=== PATIENT | male | born 1955 | race Caucasian/White ===

== ENCOUNTER 2023-11-23 00:06 | Emergency (ER) | payer OTHER ==
[~2023-11-23] VITALS: Ht 182.9 cm; Wt 106.6 kg
[~2023-11-23 00:06] MED LIST: ASPI325EC PO; MULVITMIND PO
[2023-11-23] MEDS ORDERED: Ketorolac Tromethamine 15mg Vial IV ONE (00:35)
[2023-11-23] MEDS ORDERED: Diazepam 5 MG / ML 2ML SYR IV ONE (00:35)
[2023-11-23 01:16] LABS: BASOPHILS ABSOLUTE AUTO 0.05 K/mm3 (0.00-0.23); BASOPHILS PERCENT AUTO 1 % (0-2); EOSINOPHILS ABSOLUTE AUTO 0.01 K/mm3 (0.00-0.68); EOSINOPHILS PERCENT AUTO 0 % (0-6); Hematocrit 49.8 % (37.0-53.0); Hemoglobin 17.4 g/dL (13.5-17.5); IMMATURE GRAN ABSOLUTE AUTO 0.02 K/mm3 (0.00-0.10); IMMATURE GRAN PERCENT AUTO 0 % (0-1); LYMPHOCYTES ABSOLUTE AUTO 2.24 K/mm3 (0.84-5.20); LYMPHOCYTES PERCENT AUTO 24 % (21-46); MONOCYTES ABSOLUTE AUTO 0.56 K/mm3 (0.16-1.47); MONOCYTES PERCENT AUTO 6 % (4-13); Mean Corpuscular HGB 31.5 pg (26.0-34.0); Mean Corpuscular HGB Conc 34.9 g/dL (31.5-36.5); Mean Corpuscular Volume 90 fL (80-100); NEUTROPHILS ABSOLUTE AUTO 6.58 K/mm3 (1.96-9.15); NEUTROPHILS PERCENT AUTO 70 % (41-73); Platelet Count 254 K/mm3 (150-400); RDW Coefficient Variation 14.6 % (11.7-14.2); RDW Standard Deviation 48.2 fL (35.1-46.3); Red Blood Cell Count 5.52 M/mm3 (4.30-5.90); White Blood Cell Count 9.46 K/mm3 (4.00-11.30)
[2023-11-23 01:41] LABS: Albumin, Blood 3.1 g/dL (3.4-5.0); Albumin/Globulin Ratio 0.7 (0.8-1.8); Bun/Creatinine Ratio 17.5 (12.0-20.0); Calcium, Blood 9.2 mg/dL (8.5-10.1); Creatinine, Blood 0.8 mg/dL (0.60-1.20); Globulin, Blood 4.2 g/dL (2.2-4.0); Potassium, Blood 4.6 mmol/L (3.5-5.5); Total Protein, Blood 7.3 g/dL (6.4-8.2)
[2023-11-23] MEDS ORDERED: Morphine Sulfate 4 MG/1 ML Injection IV ONE ×2 (01:55)
[2023-11-23] MEDS ORDERED: Esmolol HCL 2500mg/250ml Prema 250 ML IV SCH (02:10)
[2023-11-23 02:30] VITALS: BP 152/101
== END 2023-11-23 02:50 | disposition short-term general hospital (02) ==
LOC: ER 00:06
PROVIDERS: Emergency Medicine
DX: I71.33 Infrarenal abdominal aortic aneurysm, ruptured (principal); K68.3 Retroperitoneal hematoma
CPT/HCPCS: 72131; 74174; 80053; 83605; 83690; 83880; 84484; 85025; 86850; 86900; 86901; 86920; 93005; 93010; 96374; 96375; 99285-25; J1885; J2270; J3360; Q9967

== ENCOUNTER 2025-08-15 22:28 | Emergency (ER) | payer OTHER ==
[~2025-08-15] VITALS: Ht 182.9 cm; Wt 102.1 kg
[2025-08-15 23:03] LABS: BASOPHILS ABSOLUTE AUTO 0.09 K/mm3 (0.00-0.23); BASOPHILS PERCENT AUTO 1 % (0-2); EOSINOPHILS ABSOLUTE AUTO 0.09 K/mm3 (0.00-0.68); EOSINOPHILS PERCENT AUTO 1 % (0-6); Hematocrit 46.0 % (37.0-53.0); Hemoglobin 16.3 g/dL (13.5-17.5); IMMATURE GRAN ABSOLUTE AUTO 0.03 K/mm3 (0.00-0.10); IMMATURE GRAN PERCENT AUTO 0 % (0-1); LYMPHOCYTES ABSOLUTE AUTO 2.90 K/mm3 (0.84-5.20); LYMPHOCYTES PERCENT AUTO 28 % (21-46); MONOCYTES ABSOLUTE AUTO 1.06 K/mm3 (0.16-1.47); MONOCYTES PERCENT AUTO 10 % (4-13); Mean Corpuscular HGB Conc 35.4 g/dL (31.5-36.5); Mean Corpuscular Volume 91 fL (80-100); NEUTROPHILS ABSOLUTE AUTO 6.22 K/mm3 (1.96-9.15); NEUTROPHILS PERCENT AUTO 60 % (41-73); NRBC ABSOLUTE 0.00 K/mm3 (0.00-0.02); NRBC Auto 0.0 /100 WBC (0.0-0.2); Platelet Count 221 K/mm3 (150-400); RDW Coefficient Variation 14.3 % (11.7-14.2); RDW Standard Deviation 47.8 fL (35.1-46.3)
[2025-08-15 23:21] LABS: Alanine Aminotransfer (ALT/SGP 27.0 U/L (12-78); Albumin, Blood 2.9 g/dL (3.4-5.0); Albumin/Globulin Ratio 0.7 (0.8-1.8); Anion Gap 9.0 mmol/L (3-11); Aspartate Aminotrans (AST/SGOT 40.0 U/L (12-37); Bilirubin, Total 1.4 mg/dL (0.1-1.0); Blood Urea Nitrogen 21.0 mg/dL (8-24); CO2, Blood 24.0 mmol/L (21-32); Calcium, Blood 8.6 mg/dL (8.5-10.1); Chloride, Blood 94.0 mmol/L (98-108); Creatinine, Blood 0.88 mg/dL (0.60-1.20); Globulin, Blood 4.0 g/dL (2.2-4.0); Glucose, Blood 105.0 mg/dL (70-99); Potassium, Blood 4.6 mmol/L (3.5-5.5); Sodium, Blood 122.0 mmol/L (136-145); Total Protein, Blood 6.9 g/dL (6.4-8.2)
[2025-08-15] MEDS ORDERED: Dexamethasone Sod Phos 10 MG/ML 1ML VIAL IV ONE (23:55)
[2025-08-16 00:35] LABS: Osmolality, Serum 264.0 mos/KG (275-300)
[2025-08-16] MEDS ORDERED: NS 500 ML IV SCH (02:00)
[2025-08-16 02:50] VITALS: BP 118/73
[2025-08-16 02:53] LABS: Source, Urine Clean Catch
[2025-08-16 03:22] LABS: Bilirubin, Urine Neg (Neg); Color, Urine Yellow (P-Yellow); Glucose Qualitative, Urine Neg (Neg); Ketones, Urine Neg (Neg); Leukocyte Esterase, Urine 3+ (Neg); Protein, Urine 1+ (Neg); Red Blood Cells, Urine 0-2 /hpf (0-2); Specific Gravity, Urine 1.015 (1.003-1.022); Urobilinogen, Urine NORM (Normal); White Blood Cells, Urine TNTC /hpf (0-5)
[2025-08-16 03:25] LABS: Osmolality, Urine 563 mos/kg (15-1400)
[2025-08-16 03:26] LABS: Sodium, Urine, Random 65 mmol/L (20-110)
== END 2025-08-16 03:39 | disposition home or self-care (01) ==
LOC: ER 22:28
PROVIDERS: Emergency Medicine; Student in an Organized Health Care Education/Training Program
DX: G93.89 Other specified disorders of brain (principal); R60.0 Localized edema; E87.1 Hypo-osmolality and hyponatremia; R53.1 Weakness
CPT/HCPCS: 70450; 70460; 71046; 80053; 81001; 83880; 83930; 83935; 84300; 84484; 85025; 87077; 87086; 87186; 93005; 93010; 96361-59; 96374-59; 99285-25; J1100; J7030; Q9967

== ENCOUNTER 2025-09-25 01:04 | Day surgery (SDC) | payer MEDICARE ==
[2025-09-25] MEDS ORDERED: CefTRIAXone Sodium 2,000 MG in NS 100 ML IV SCH (06:00)
[2025-09-25 08:47] VITALS: BP 91/62
[2025-09-25] MEDS ORDERED: LACT PO (11:20)
[2025-09-25] MEDS ORDERED: POTA10T PO (11:21)
[2025-09-25] MEDS ORDERED: SENN187 PO (11:21)
[2025-09-25] MEDS ORDERED: ELIQUIS5 M2 PO (11:22)
[2025-09-25] MEDS ORDERED: ALBU90OI INH (11:22)
[2025-09-25] MEDS ORDERED: MIRALAX17 GM PO (11:23)
[2025-09-25] MEDS ORDERED: ACET325 PO (11:23)
[2025-09-25] MEDS ORDERED: METO25ER PO (11:23)
[2025-09-25] MEDS ORDERED: ATOR20 PO (11:24)
[2025-09-25] MEDS ORDERED: TIOT18 INH (11:24)
[2025-09-25] MEDS ORDERED: TAMS.4ER PO (11:24)
[2025-09-25] MEDS ORDERED: FURO40 PO (11:25)
== END 2025-09-25 16:32 | disposition home or self-care (01) ==
LOC: ATC 01:04
DX: G06.0 Intracranial abscess and granuloma (principal); J44.9 Chronic obstructive pulmonary disease, unspecified; F17.200 Nicotine dependence, unspecified, uncomplicated; I10 Essential (primary) hypertension; E11.42 Type 2 diabetes mellitus with diabetic polyneuropathy; Z79.899 Other long term (current) drug therapy
CPT/HCPCS: 96365; J0696

== ENCOUNTER 2025-09-26 01:00 | Day surgery (SDC) | payer MEDICARE ==
[~2025-09-26 01:00] MED LIST changes: +ACET325 PO; +ALBU90OI INH; +ATOR20 PO; +ELIQUIS5 M2 PO; +FURO40 PO; +LACT PO; +METO25ER PO; +MIRALAX17 GM PO; +POTA10T PO; +SENN187 PO; +TAMS.4ER PO; +TIOT18 INH
[2025-09-26] MEDS ORDERED: CefTRIAXone Sodium 2,000 MG in NS 100 ML IV SCH (06:00)
[2025-09-26 08:35] VITALS: BP 92/66
--- NOTE | 2025-09-26 08:49 | NUR ---
PT ARRIVED WITH PORTABLE OXYGEN AND A HOSPITAL OXYGEN TANK IN A WHEELED CART. PT REPORTS THAT [facility] LET THE PT TAKE THE OXYGEN TANK AND WHEELED CART HOME WITH HIM YESTERDAY HE WAS CONCERNED HE WOULD NOT HAVE ENOUGH OXYGEN AT HOME. PT IS CURRENTLY ON 4LITERS O2 AROUND THE CLOCK. OXYGEN TANK DID RETURN TODAY ON EMPTY. CALLED [employer], NURSING [employer] TO ASK FOR ASSISTANCE ON HOW TO HELP THE PT THROUGH THE WEEKEND. [employer] REPORTED THAT THE PT NEEDS TO CALL HE OXYGEN SUP[employer] AND THEY HAVE SOMEONE FANCY NEEDLEWORKER TO ASSIST WITH OXYGEN NEEDS. PT INFORMED AND VERBALIZED UNDERSTANDING.
--- NOTE | 2025-09-26 15:53 | NUR ---
PT HAS NOT ARRIVED FOR 1530 APPT. CALLED TO CHECK ON PT AND CALL WENT STRAIGHT TO [employer]
== END 2025-09-26 23:00 | disposition home or self-care (01) ==
LOC: ATC 01:00
DX: G06.0 Intracranial abscess and granuloma (principal); E78.5 Hyperlipidemia, unspecified; E11.42 Type 2 diabetes mellitus with diabetic polyneuropathy; J96.10 Chronic respiratory failure, unspecified whether with hypoxia or hypercapnia; I50.32 Chronic diastolic (congestive) heart failure; I11.0 Hypertensive heart disease with heart failure; G81.94 Hemiplegia, unspecified affecting left nondominant side; I48.0 Paroxysmal atrial fibrillation; Z79.899 Other long term (current) drug therapy
CPT/HCPCS: 96365; J0696

== ENCOUNTER 2025-09-29 02:36 | Day surgery (SDC) | payer MEDICARE ==
[~2025-09-29 02:36] MED LIST changes: +CefTRIAXone Sodium 2,000 MG in NS 100 ML IV SCH
[2025-09-29 08:45] VITALS: BP 102/77
--- NOTE | 2025-09-29 16:41 | NUR ---
CALLED [facility] TO COMMUNICATE CONCERNS ABOUT PT'S OXYGENATION. BOTH VISITS TODAY HAVE BEEN CONCERNING FOR DYSPNEA WITH SATS BETWEEN 72-74% UPON ARRIVAL. PT STATES THAT HE IS CONCERNED ABOUT NOT HAVING SUFFICIENT SUPPLY OF OXYGEN AT HOME. HE BELIEVES THAT HE HAS ENOUGH FOR TONIGHT. ADVISED [facility] PRESENT TO THE [facility]RGENT CARE OR ER NEEDED. TAY VICKERS AT HIS PCP WITH SEE HIM TOMORROW AND FACILITATE THE OXYGEN ORDERS NEEDED. PT STATES UNDERSTANDING AND AGREEABLE TO PLAN.
== END 2025-09-29 16:35 | disposition home or self-care (01) ==
LOC: ATC 02:36
DX: G06.0 Intracranial abscess and granuloma (principal); I11.0 Hypertensive heart disease with heart failure; I50.32 Chronic diastolic (congestive) heart failure; I48.0 Paroxysmal atrial fibrillation; I27.20 Pulmonary hypertension, unspecified; J44.9 Chronic obstructive pulmonary disease, unspecified; J84.10 Pulmonary fibrosis, unspecified; J96.11 Chronic respiratory failure with hypoxia; E11.42 Type 2 diabetes mellitus with diabetic polyneuropathy; E78.5 Hyperlipidemia, unspecified; F17.200 Nicotine dependence, unspecified, uncomplicated; G47.33 Obstructive sleep apnea (adult) (pediatric); G93.89 Other specified disorders of brain; G81.94 Hemiplegia, unspecified affecting left nondominant side; Z79.899 Other long term (current) drug therapy; Z79.01 Long term (current) use of anticoagulants
CPT/HCPCS: 96365; J0696

== ENCOUNTER 2025-09-30 00:40 | Day surgery (SDC) | payer MEDICARE ==
[~2025-09-30 00:40] MED LIST changes: -CefTRIAXone Sodium 2,000 MG in NS 100 ML IV SCH
[2025-09-30] MEDS ORDERED: CefTRIAXone Sodium 2,000 MG in NS 100 ML IV SCH (06:00)
[2025-09-30 08:32] VITALS: BP 103/66
[2025-09-30 15:25] VITALS: BP 141/95
== END 2025-09-30 15:57 | disposition home or self-care (01) ==
LOC: ATC 00:40
DX: G06.0 Intracranial abscess and granuloma (principal); I11.0 Hypertensive heart disease with heart failure; I50.32 Chronic diastolic (congestive) heart failure; I27.20 Pulmonary hypertension, unspecified; I48.0 Paroxysmal atrial fibrillation; J44.9 Chronic obstructive pulmonary disease, unspecified; J84.10 Pulmonary fibrosis, unspecified; J96.11 Chronic respiratory failure with hypoxia; R91.8 Other nonspecific abnormal finding of lung field; R59.0 Localized enlarged lymph nodes; G81.94 Hemiplegia, unspecified affecting left nondominant side; G47.33 Obstructive sleep apnea (adult) (pediatric); G93.89 Other specified disorders of brain; E78.5 Hyperlipidemia, unspecified; E11.42 Type 2 diabetes mellitus with diabetic polyneuropathy; F41.1 Generalized anxiety disorder; M62.81 Muscle weakness (generalized); N40.0 Benign prostatic hyperplasia without lower urinary tract symptoms; Z79.01 Long term (current) use of anticoagulants; Z79.899 Other long term (current) drug therapy; Z98.890 Other specified postprocedural states
CPT/HCPCS: 96365; J0696

== ENCOUNTER 2025-10-01 02:27 | Day surgery (SDC) | payer MEDICARE ==
[2025-10-01] MEDS ORDERED: CefTRIAXone Sodium 2,000 MG in NS 100 ML IV SCH (06:00)
[2025-10-01 08:35] VITALS: BP 98/68
[2025-10-01 15:43] VITALS: BP 96/76
== END 2025-10-01 16:08 | disposition home or self-care (01) ==
LOC: ATC 02:27
DX: G06.0 Intracranial abscess and granuloma (principal); I50.32 Chronic diastolic (congestive) heart failure; I11.0 Hypertensive heart disease with heart failure; J44.9 Chronic obstructive pulmonary disease, unspecified; E78.5 Hyperlipidemia, unspecified; E11.42 Type 2 diabetes mellitus with diabetic polyneuropathy; I48.0 Paroxysmal atrial fibrillation; G81.94 Hemiplegia, unspecified affecting left nondominant side
CPT/HCPCS: 96365; J0696

== ENCOUNTER 2025-10-02 03:24 | Day surgery (SDC) | payer MEDICARE ==
[2025-10-02] MEDS ORDERED: CefTRIAXone Sodium 2,000 MG in NS 100 ML IV SCH (06:00)
[2025-10-02 08:38] VITALS: BP 104/69
[2025-10-02 15:45] VITALS: BP 84/54
[2025-10-02 16:05] VITALS: BP 85/50
== END 2025-10-02 16:09 | disposition home or self-care (01) ==
LOC: ATC 03:24
DX: G06.0 Intracranial abscess and granuloma (principal); J44.9 Chronic obstructive pulmonary disease, unspecified; J96.21 Acute and chronic respiratory failure with hypoxia; J84.10 Pulmonary fibrosis, unspecified; E78.5 Hyperlipidemia, unspecified; G47.33 Obstructive sleep apnea (adult) (pediatric); I11.0 Hypertensive heart disease with heart failure; I50.32 Chronic diastolic (congestive) heart failure; I48.0 Paroxysmal atrial fibrillation; E11.42 Type 2 diabetes mellitus with diabetic polyneuropathy; G81.94 Hemiplegia, unspecified affecting left nondominant side; E44.1 Mild protein-calorie malnutrition; F17.200 Nicotine dependence, unspecified, uncomplicated; Z79.899 Other long term (current) drug therapy
CPT/HCPCS: 96365; 99211; J0696

== ENCOUNTER 2025-10-03 02:22 | Day surgery (SDC) | payer MEDICARE ==
[~2025-10-03 02:22] MED LIST changes: +CefTRIAXone Sodium 2,000 MG in NS 100 ML IV SCH
[2025-10-03 08:48] VITALS: BP 97/67
[2025-10-03] MEDS ORDERED: CefTRIAXone Sodium 2,000 MG in NS 100 ML IV SCH (15:00)
== END 2025-10-03 16:46 | disposition home or self-care (01) ==
LOC: ATC 02:22
DX: G06.0 Intracranial abscess and granuloma (principal); J44.9 Chronic obstructive pulmonary disease, unspecified; J96.21 Acute and chronic respiratory failure with hypoxia; J84.10 Pulmonary fibrosis, unspecified; I11.0 Hypertensive heart disease with heart failure; I50.32 Chronic diastolic (congestive) heart failure; I48.0 Paroxysmal atrial fibrillation; I27.20 Pulmonary hypertension, unspecified; F17.200 Nicotine dependence, unspecified, uncomplicated; F41.1 Generalized anxiety disorder; R91.8 Other nonspecific abnormal finding of lung field; R59.0 Localized enlarged lymph nodes; E11.42 Type 2 diabetes mellitus with diabetic polyneuropathy; E78.5 Hyperlipidemia, unspecified; G81.94 Hemiplegia, unspecified affecting left nondominant side; G47.33 Obstructive sleep apnea (adult) (pediatric); G93.89 Other specified disorders of brain; N40.0 Benign prostatic hyperplasia without lower urinary tract symptoms; Z79.01 Long term (current) use of anticoagulants; Z79.899 Other long term (current) drug therapy; Z99.81 Dependence on supplemental oxygen
CPT/HCPCS: 96365; J0696

== ENCOUNTER → 2025-10-05 | Outpatient (CLI) | payer MEDICARE ==
[~2025-10-05] MED LIST changes: -CefTRIAXone Sodium 2,000 MG in NS 100 ML IV SCH
[2025-10-05 19:04] LABS: BASOPHILS ABSOLUTE AUTO 0.08 K/mm3 (0.00-0.23); BASOPHILS PERCENT AUTO 1 % (0-2); EOSINOPHILS ABSOLUTE AUTO 0.43 K/mm3 (0.00-0.68); EOSINOPHILS PERCENT AUTO 6 % (0-6); Hematocrit 41.6 % (37.0-53.0); Hemoglobin 13.6 g/dL (13.5-17.5); IMMATURE GRAN ABSOLUTE AUTO 0.01 K/mm3 (0.00-0.10); IMMATURE GRAN PERCENT AUTO 0 % (0-1); LYMPHOCYTES ABSOLUTE AUTO 2.58 K/mm3 (0.84-5.20); LYMPHOCYTES PERCENT AUTO 36 % (21-46); MONOCYTES ABSOLUTE AUTO 0.80 K/mm3 (0.16-1.47); MONOCYTES PERCENT AUTO 11 % (4-13); Mean Corpuscular HGB Conc 32.7 g/dL (31.5-36.5); Mean Corpuscular Volume 99 fL (80-100); NEUTROPHILS ABSOLUTE AUTO 3.18 K/mm3 (1.96-9.15); NEUTROPHILS PERCENT AUTO 45 % (41-73); NRBC ABSOLUTE 0.00 K/mm3 (0.00-0.02); NRBC Auto 0.0 /100 WBC (0.0-0.2); Platelet Count 222 K/mm3 (150-400); RDW Coefficient Variation 16.1 % (11.7-14.2); RDW Standard Deviation 59.3 fL (35.1-46.3)
[2025-10-05 19:47] LABS: Alanine Aminotransfer (ALT/SGP 26.0 U/L (12-78); Albumin, Blood 3.1 g/dL (3.4-5.0); Albumin/Globulin Ratio 0.9 (0.8-1.8); Anion Gap 7.0 mmol/L (3-11); Aspartate Aminotrans (AST/SGOT 38.0 U/L (12-37); Bilirubin, Total 0.9 mg/dL (0.1-1.0); Blood Urea Nitrogen 14.0 mg/dL (8-24); CO2, Blood 28.0 mmol/L (21-32); Calcium, Blood 9.1 mg/dL (8.5-10.1); Chloride, Blood 101.0 mmol/L (98-108); Creatinine, Blood 0.84 mg/dL (0.60-1.20); Globulin, Blood 3.4 g/dL (2.2-4.0); Glucose, Blood 89.0 mg/dL (70-99); Potassium, Blood 4.6 mmol/L (3.5-5.5); Sodium, Blood 131.0 mmol/L (136-145); Total Protein, Blood 6.5 g/dL (6.4-8.2); Uric Acid, Blood 6.2 mg/dL (3.5-7.2)
== END ==
LOC: LAB 15:51 → LAB SHORT 15:51
PROVIDERS: Internal Medicine Hematology & Oncology
DX: C80.1 Malignant (primary) neoplasm, unspecified (principal); C34.12 Malignant neoplasm of upper lobe, left bronchus or lung
CPT/HCPCS: 80053; 82378; 84550; 85025

== ENCOUNTER 2025-10-22 23:57 | Inpatient (IN) | payer OTHER ==
[~2025-10-22] VITALS: Ht 182.9 cm; Wt 95.6 kg
[2025-10-23 00:09] LABS: pH Blood Venous 7.34 (7.34-7.37)
[2025-10-23] MEDS ORDERED: Metoprolol Tartrate 1 MG/ML 5 ML VIAL IV PRN (00:10)
[2025-10-23 00:11] LABS: Hematocrit 37.3 % (37.0-53.0); Hemoglobin 12.2 g/dL (13.5-17.5); Mean Corpuscular HGB Conc 32.7 g/dL (31.5-36.5); Mean Corpuscular Volume 99 fL (80-100); NRBC ABSOLUTE 0.03 K/mm3 (0.00-0.02); NRBC Auto 0.4 /100 WBC (0.0-0.2); Platelet Count 84 K/mm3 (150-400); RDW Coefficient Variation 15.4 % (11.7-14.2); RDW Standard Deviation 55.3 fL (35.1-46.3)
[2025-10-23 00:30] LABS: BAND PERCENT MAN 4 % (0-8); BASOPHILS ABSOLUTE MAN 0.07 K/mm3 (0.00-0.23); BASOPHILS PERCENT MAN 1 % (0-2); EOSINOPHILS ABSOLUTE MAN 0.00 K/mm3 (0.00-0.68); EOSINOPHILS PERCENT MAN 0 % (0-6); LYMPHOCYTES ABSOLUTE MAN 0.91 K/mm3 (0.84-5.20); LYMPHOCYTES PERCENT MAN 13 % (21-46); MONOCYTES ABSOLUTE MAN 0.84 K/mm3 (0.16-1.47); MONOCYTES PERCENT MAN 12 % (4-13); MYELOCYTE ABSOLUTE MAN 0.35 K/mm3 (0.00-0.00); MYELOCYTE PERCENT MAN 5 % (0-0); NEUTROPHILS ABSOLUTE MAN 4.83 K/mm3 (1.96-9.15); SEG NEUTROPHILS PERCENT MAN 65 % (41-73)
[2025-10-23] MEDS ORDERED: Amiodarone HCl 150 MG in NS 100 ML IV ONE (00:45)
[2025-10-23 01:09] LABS: Alanine Aminotransfer (ALT/SGP 122.0 U/L (12-78); Albumin, Blood 3.1 g/dL (3.4-5.0); Albumin/Globulin Ratio 1.0 (0.8-1.8); Anion Gap 18.0 mmol/L (3-11); Aspartate Aminotrans (AST/SGOT 204.0 U/L (12-37); Bilirubin, Total 1.8 mg/dL (0.1-1.0); Blood Urea Nitrogen 43.0 mg/dL (8-24); CO2, Blood 22.0 mmol/L (21-32); Calcium, Blood 8.5 mg/dL (8.5-10.1); Chloride, Blood 103.0 mmol/L (98-108); Creatinine, Blood 1.39 mg/dL (0.60-1.20); Globulin, Blood 3.2 g/dL (2.2-4.0); Glucose, Blood 23.0 mg/dL (70-99); Potassium, Blood 4.9 mmol/L (3.5-5.5); Sodium, Blood 138.0 mmol/L (136-145); Total Protein, Blood 6.3 g/dL (6.4-8.2)
[2025-10-23] MEDS ORDERED: NS 1,000 ML IV SCH ×2 (01:20→16:15)
[2025-10-23] MEDS ORDERED: FLU VACC TS2025(65UP)/MF59C/PF 45 MCG/0.5 ML SYRINGE IM SCH (05:30)
[2025-10-23] MEDS ORDERED: Ondansetron HCl 2 MG / ML 2ML Vial IV PRN (05:30)
[2025-10-23] MEDS ORDERED: Amiodarone HCl 450 MG in NS 250 ML IV SCH (05:40)
[2025-10-23] MEDS ORDERED: Enoxaparin 40 MG/0.4 ML SYR SC SCH (09:00)
[2025-10-23 13:59] VITALS: BP 95/72
[2025-10-23 16:57] VITALS: BP 99/74
--- NOTE | 2025-10-23 16:57 | NUR ---
ARRIVAL TO UNIT PT ARRIVED TO PCU AT 1350 VIA GURNEY AND ON 5L NC WHICH IS PT BASELINE. PT ABLE TO TRANSFER FROM GURNEY TP PCU BED WITH MINIMAL ASSISTANCE, TOLERAFED FAIR. O2 INCREASED TO 7L WITH EXERTION SATS DROPPED TO MID 80'S. SATS REBOUNDED QUICKLY ONCE AT REST AND O2 TITRATED BACK TO 5L NC. PT A/OX4, ANSWERING HX QUESTIONS APPROPIATELY. PT IN AFIB WITH CONTROLED RATE. OTHER VSS AT TIME OF ARRIVAL. BLOOD SUGAR CHECKED AT TIME OF ARRIVAL AND WAS MD ANALISA NOTIFIED. CONTINUE Q4 CBG'S AT THIS TIME.
--- NOTE | 2025-10-23 18:17 | NUR ---
END OF SHIFT SUMMARY PT IS A/O X4, ABLE TO MAKE NEEDS KNOWN AND CAN MOVE EXTREMITIES EQUALLY AND BILATERALLY. PT CAN BECOME AGITATED AT TIMES. PT IS AFEBRILE. CONTINUOUS CARDIAC MONITORING IN PLACE SHOWING AFIB WITH A HR IN THE 100'S, MPA >65. PT IS ON 5L-8L NC, NEEDING HIGHER OXYGEN DEMAND WITH MOVEMENT. PT IS CARDIAC DIET AND CAN TOLERATE PO INTAKE WELL. PT CAN USE THE URINAL INDEPENDENTLY AND IS SBA TO THE BSC. PIV IS IN PLACE TO THE R HAND AND LFA. BED IS IN LOWEST POSITION, CALL LIGHT IN REACH, WILL REPORT TO ONCOMING SHIFT.
[2025-10-23 19:02] VITALS: BP 92/66
[2025-10-23 23:19] VITALS: BP 101/74
[2025-10-24] LABS: U Amphetamine Screen Not Detected; U Barbiturate Screen Not Detected; U Benzodiazapine Screen Not Detected; U Buprenorphine Screen Not Detected; U Cannabinoids Screen DETECTED; U Cocaine Screen Not Detected; U Methadone Screen Not Detected; U Methamphetamine Screen Not Detected; U Opiates Screen Not Detected; U Oxycodone Screen Not Detected; U Phencyclidine Screen Not Detected
[2025-10-24 03:41] VITALS: BP 110/77
[2025-10-24 04:05] LABS: BASOPHILS ABSOLUTE AUTO 0.06 K/mm3 (0.00-0.23); BASOPHILS PERCENT AUTO 1 % (0-2); EOSINOPHILS ABSOLUTE AUTO 0.03 K/mm3 (0.00-0.68); EOSINOPHILS PERCENT AUTO 1 % (0-6); Hematocrit 29.6 % (37.0-53.0); Hemoglobin 10.2 g/dL (13.5-17.5); IMMATURE GRAN ABSOLUTE AUTO 0.26 K/mm3 (0.00-0.10); IMMATURE GRAN PERCENT AUTO 4 % (0-1); LYMPHOCYTES ABSOLUTE AUTO 2.10 K/mm3 (0.84-5.20); LYMPHOCYTES PERCENT AUTO 35 % (21-46); MONOCYTES ABSOLUTE AUTO 1.22 K/mm3 (0.16-1.47); MONOCYTES PERCENT AUTO 20 % (4-13); Mean Corpuscular HGB Conc 34.5 g/dL (31.5-36.5); Mean Corpuscular Volume 96 fL (80-100); NEUTROPHILS ABSOLUTE AUTO 2.41 K/mm3 (1.96-9.15); NEUTROPHILS PERCENT AUTO 40 % (41-73); NRBC ABSOLUTE 0.02 K/mm3 (0.00-0.02); NRBC Auto 0.3 /100 WBC (0.0-0.2); Platelet Count 105 K/mm3 (150-400); RDW Coefficient Variation 15.3 % (11.7-14.2); RDW Standard Deviation 53.4 fL (35.1-46.3)
[2025-10-24 04:34] LABS: Alanine Aminotransfer (ALT/SGP 146.0 U/L (12-78); Albumin, Blood 2.4 g/dL (3.4-5.0); Albumin/Globulin Ratio 0.9 (0.8-1.8); Anion Gap 7.0 mmol/L (3-11); Aspartate Aminotrans (AST/SGOT 217.0 U/L (12-37); Bilirubin, Total 0.9 mg/dL (0.1-1.0); Blood Urea Nitrogen 36.0 mg/dL (8-24); CO2, Blood 28.0 mmol/L (21-32); Calcium, Blood 7.6 mg/dL (8.5-10.1); Chloride, Blood 101.0 mmol/L (98-108); Creatinine, Blood 0.96 mg/dL (0.60-1.20); Globulin, Blood 2.8 g/dL (2.2-4.0); Glucose, Blood 79.0 mg/dL (70-99); Potassium, Blood 4.0 mmol/L (3.5-5.5); Sodium, Blood 132.0 mmol/L (136-145); Total Protein, Blood 5.2 g/dL (6.4-8.2)
--- NOTE | 2025-10-24 06:32 | NUR ---
Shift Summary Pt on Q4 blood sugars, CBG stable t/o the night. 0400 CBG was on the low side of normal at 79. I encourage snacks and applejuice. Pt on 5-9L O2 NC, he quickly desats down to 80% when up however if on 9L he may desat down to 84% and recover faster. Once back in bed and resting I set him back to 5L and his SPO2 is stable around 94%. Pt having frequent voids using the urinal at the bedside. He is rcving NS @ 150 as ordered. He is AOx4, calls appropriatly. No agitation this shift. Pt has a congested cough.
[2025-10-24 07:31] VITALS: BP 117/81
[2025-10-24] MEDS ORDERED: Enoxaparin 60 MG/0.6 ML SYR SC ONE (11:20)
[2025-10-24 12:20] VITALS: BP 103/65
[2025-10-24] MEDS ORDERED: STIOLTO RESPIMAT4 G2 INH (12:56)
[2025-10-24] MEDS ORDERED: DAPAGLIFLOZIN5 MG PO (12:58)
[2025-10-24] MEDS ORDERED: MAGNESIUM OXID500 MG PO (12:58)
[2025-10-24] MEDS ORDERED: THERA-D2000 UNIT PO (12:59)
[2025-10-24] MEDS ORDERED: ONDA4ODT PO (13:00)
[2025-10-24 15:11] VITALS: BP 116/90
[2025-10-24] MEDS ORDERED: Furosemide 10 MG / ML 2ML Vial IV ONE (18:35)
--- NOTE | 2025-10-24 18:35 | NUR ---
SPOKE WITH DR. MARTINEZ REGARDING INCREASE IN O2 DEMAND WITH AMBULATION AND COARSE CRACKLES TO BASES OF LUNGS. CXR AND BNP ORDERED PER PROVIDER. RESULTS DISCUSSED WITH PROVIDER AND ORDER FOR IV LASIX 20MG X1 NOW AND RESART PO HOME DOSE TOMMOROW
--- NOTE | 2025-10-24 19:39 | NUR ---
END OF SHIFT SUMMARY PT IS A/O X4 ABLE TO MAKE NEEDS KNOWN AND CAN MOVE EXTREMITIES EQUALLY AND BILATERALLY, PT IS AFEBRILE. CONTINUOUS CARDAIC MONITORING IN PLACE, SHOWING AFIB WITH HR IN THE 80'S-100'S, MAP >65. PT IS ON 5L WHICH IS BASELINE AND NEEDS HIGHER OXYGEN REQUIRMENTS WITH MOVEMENT. PT IS CARDIAC DIET AND TOLERATES PO INTAKE WELL. PT USES URINAL IND. PIV IS IN PLACE TO L HAND. BED IN LOWEST POSITION, CALL LIGHT IN REACH, WILL REPORT TO ON COMING SHIFT.
[2025-10-24 21:57] VITALS: BP 110/93
[2025-10-25] VITALS (7 sets, daily range): BP systolic 94–124; BP diastolic 65–93
[2025-10-25 04:13] LABS: BASOPHILS ABSOLUTE AUTO 0.07 K/mm3 (0.00-0.23); BASOPHILS PERCENT AUTO 1 % (0-2); EOSINOPHILS ABSOLUTE AUTO 0.04 K/mm3 (0.00-0.68); EOSINOPHILS PERCENT AUTO 1 % (0-6); Hematocrit 31.1 % (37.0-53.0); Hemoglobin 10.6 g/dL (13.5-17.5); IMMATURE GRAN ABSOLUTE AUTO 0.36 K/mm3 (0.00-0.10); IMMATURE GRAN PERCENT AUTO 6 % (0-1); LYMPHOCYTES ABSOLUTE AUTO 2.26 K/mm3 (0.84-5.20); LYMPHOCYTES PERCENT AUTO 39 % (21-46); MONOCYTES ABSOLUTE AUTO 1.09 K/mm3 (0.16-1.47); MONOCYTES PERCENT AUTO 19 % (4-13); Mean Corpuscular HGB Conc 34.1 g/dL (31.5-36.5); Mean Corpuscular Volume 96 fL (80-100); NEUTROPHILS ABSOLUTE AUTO 2.05 K/mm3 (1.96-9.15); NEUTROPHILS PERCENT AUTO 35 % (41-73); NRBC ABSOLUTE 0.00 K/mm3 (0.00-0.02); NRBC Auto 0.0 /100 WBC (0.0-0.2); Platelet Count 134 K/mm3 (150-400); RDW Coefficient Variation 15.6 % (11.7-14.2); RDW Standard Deviation 54.3 fL (35.1-46.3)
[2025-10-25 04:33] LABS: BASOPHILS ABSOLUTE MAN 0.05 K/mm3 (0.00-0.23); BASOPHILS PERCENT MAN 1 % (0-2); EOSINOPHILS ABSOLUTE MAN 0.05 K/mm3 (0.00-0.68); EOSINOPHILS PERCENT MAN 1 % (0-6); LYMPHOCYTES ABSOLUTE MAN 1.99 K/mm3 (0.84-5.20); LYMPHOCYTES PERCENT MAN 34 % (21-46); MONOCYTES ABSOLUTE MAN 0.93 K/mm3 (0.16-1.47); MONOCYTES PERCENT MAN 16 % (4-13); MYELOCYTE ABSOLUTE MAN 0.17 K/mm3 (0.00-0.00); MYELOCYTE PERCENT MAN 3 % (0-0); NEUTROPHILS ABSOLUTE MAN 2.64 K/mm3 (1.96-9.15); SEG NEUTROPHILS PERCENT MAN 45 % (41-73)
[2025-10-25 04:35] LABS: Alanine Aminotransfer (ALT/SGP 169.0 U/L (12-78); Albumin, Blood 2.7 g/dL (3.4-5.0); Albumin/Globulin Ratio 0.9 (0.8-1.8); Anion Gap 5.0 mmol/L (3-11); Aspartate Aminotrans (AST/SGOT 223.0 U/L (12-37); Bilirubin, Total 1.1 mg/dL (0.1-1.0); Blood Urea Nitrogen 20.0 mg/dL (8-24); CO2, Blood 32.0 mmol/L (21-32); Calcium, Blood 7.7 mg/dL (8.5-10.1); Chloride, Blood 101.0 mmol/L (98-108); Creatinine, Blood 0.73 mg/dL (0.60-1.20); Globulin, Blood 2.9 g/dL (2.2-4.0); Glucose, Blood 80.0 mg/dL (70-99); Potassium, Blood 4.0 mmol/L (3.5-5.5); Sodium, Blood 134.0 mmol/L (136-145); Total Protein, Blood 5.6 g/dL (6.4-8.2)
--- NOTE | 2025-10-25 06:44 | NUR ---
PT STABLE THROUGHOUT SHIFT. PT REMAINS AOX4, INDEPENDENT USE OF URINAL AT BEDSIDE. PT DID HAVE INCREASED O2 DEMAND TO MAINTAIN SATS 92% OR GREATER. PT ALTERNATING BETWEEN HIGH FLOW NASAL CANNULA AND OXIMASK. PT O2 DEMAND WAS BETWEEN 6-8L WITH UP TO 10L TO HELP RECOVER AFTER STANDING TO URINATE. PT HAS LITTLE O2 RESERVE AND DESATS WITH EXERTION. PT DOES NOT C/O OF FEELING SHORT OF BREATH. PT HAS HAD GOOD URINARY OUTPUT THROUGHOUT THE NIGHT.
--- NOTE | 2025-10-25 17:39 | NUR ---
SHIFT SUMMARY: PATIENT IS ALERT AND ORIENTED X4 & COOPERATIVE WITH HIS CARE, IS ABLE TO MAKE NEEDS KNOWN, USES CALL LIGHT APPRORPAITELY. PATIENT ON TELE SHOWING AIFB WITH RATE BETWEEN 90-120'S OCCASIONALLY, DOES TACH UP WITH EXERTION. SATTING >92% ON ANYWEHRE FROM 5-10 LITERS VIA. WHEN PATIENT IS SLEEPING DOES DESAT TO THE 80'S AND NEEDS TO BE BUMPED ON OXYGEN. PATIENT STATED HE WEARS A CPAP AT HOME, WAS ASKED FAMILY TO BRING IN HOME CPAP BUT NOT ABLE TO BRING IT IN. PATIENT WAS GIVEN PO LASIX AND HAD GOOD OUTPUT THROUGHOUT THE SHIFT. Q4 BLOOD SUGAR CHECKS AND SLOWLY THORUGHOUT THE SHIFT INCREASED. PATIENT WAS ABLE TO SLEEP THORUHGOUT THE SHIFT. CURRENTLY AT THE BEDSIDE, EATING DINNER,CALL LIGHT WITHIN REACH & BED IN LOWEST LOCKED POSITION. PATIENT IS STATING NOTHING ELSE IS NEEDED AT THIS TIME.
[2025-10-26 00:22] VITALS: BP 115/82
[2025-10-26 03:45] VITALS: BP 100/72
--- NOTE | 2025-10-26 06:22 | NUR ---
SHIFT SUMMARY: PT IS A&OX4 PLEASANT AND COOPERATIVE WITH CARE. VSS ON 7 L OXYGEN VIA HFNC, HE ATTEMPTED TO WEAR THE HOSPITAL CPAP, BUT WASN'T ABLE TO TOLERATE IT VERY LONG. AFIB 90'S-100'S, HE OCCASIONALLY HITS 140'S WITH EXERTION, BUT DOESN'T SUSTAIN. HE DID HAVE A 5 BEAT RUN, AND A 7 BEAT RUN OF VTACH THIS SHIFT. HE WAS ASYMPTOMATIC AND DID NOT SUSTAIN, RESIDENT MADE AWARE AND HE ADDED A MAG TO HIS MORNING LABS. HE WAS AWAKE MOST OF THIS SHIFT, HE SAID THAT'S PRETTY NORMAL FOR HIM. THIS RN CALLED THE RESIDENT AND HE ORDERED SOME MELATONIN, IT DIDN'T HELP, HE STATES HE TAKES CBD AT HOME TO HELP HIM SLEEP. [place] DENIES PAIN. PT IS A SBA TO BR FOR LINE MANAGEMENT. HE IS VOIDING ADEQUATE AMOUNTS OF CLEAR, YELLOW URINE IN THE URINAL INDEPENDENTLY. HE DID HAVE 2 LOOSE BM'S THIS SHIFT. PT TOLERATING A HEART HEALTHY DIET, AND PREFERS COFFEE TO DRINK. BED IN LOWEST POSITION, CALL LIGHT WITHIN REACH.
--- NOTE | 2025-10-26 07:00 | NUR ---
ASSUMPTION OF CARE: REPORT FROM ZULAY VASQUEZ RN TO ASSUME CARE OF PT. PT RESTING IN BED WITH NO NEEDS OR COMPLAINTS AT THIS TIME. NADN. CALL LIGHT IN REACH.
[2025-10-26 07:09] LABS: Hematocrit 33.4 % (37.0-53.0); Hemoglobin 11.2 g/dL (13.5-17.5); Mean Corpuscular HGB Conc 33.5 g/dL (31.5-36.5); Mean Corpuscular Volume 98 fL (80-100); NRBC ABSOLUTE 0.00 K/mm3 (0.00-0.02); NRBC Auto 0.0 /100 WBC (0.0-0.2); Platelet Count 175 K/mm3 (150-400); RDW Coefficient Variation 15.7 % (11.7-14.2); RDW Standard Deviation 54.4 fL (35.1-46.3)
[2025-10-26 07:49] LABS: Alanine Aminotransfer (ALT/SGP 137.0 U/L (12-78); Albumin, Blood 2.8 g/dL (3.4-5.0); Albumin/Globulin Ratio 0.9 (0.8-1.8); Anion Gap 7.0 mmol/L (3-11); Aspartate Aminotrans (AST/SGOT 153.0 U/L (12-37); Bilirubin, Total 1.3 mg/dL (0.1-1.0); Blood Urea Nitrogen 12.0 mg/dL (8-24); CO2, Blood 30.0 mmol/L (21-32); Calcium, Blood 7.9 mg/dL (8.5-10.1); Chloride, Blood 100.0 mmol/L (98-108); Creatinine, Blood 0.63 mg/dL (0.60-1.20); Globulin, Blood 3.0 g/dL (2.2-4.0); Glucose, Blood 107.0 mg/dL (70-99); Magnesium, Blood 1.1 mg/dL (1.6-2.4); Potassium, Blood 3.8 mmol/L (3.5-5.5); Sodium, Blood 133.0 mmol/L (136-145); Total Protein, Blood 5.8 g/dL (6.4-8.2)
[2025-10-26] MEDS ORDERED: Magnesium Sulf 2 GM/Water 50ML 50 ML IV ONE ×2 (07:55→10:30)
[2025-10-26 07:58] VITALS: BP 107/74
[2025-10-26 08:53] LABS: BAND PERCENT MAN 3 % (0-8); BASOPHILS ABSOLUTE MAN 0.00 K/mm3 (0.00-0.23); BASOPHILS PERCENT MAN 0 % (0-2); EOSINOPHILS ABSOLUTE MAN 0.00 K/mm3 (0.00-0.68); EOSINOPHILS PERCENT MAN 0 % (0-6); LYMPHOCYTES ABSOLUTE MAN 1.99 K/mm3 (0.84-5.20); LYMPHOCYTES PERCENT MAN 33 % (21-46); METAMYELOCYTE ABSOLUTE MAN 0.18 K/mm3 (0.00-0.00); METAMYELOCYTE PERCENT MAN 3 % (0-0); MONOCYTES ABSOLUTE MAN 0.96 K/mm3 (0.16-1.47); MONOCYTES PERCENT MAN 16 % (4-13); MYELOCYTE ABSOLUTE MAN 0.12 K/mm3 (0.00-0.00); MYELOCYTE PERCENT MAN 2 % (0-0); NEUTROPHILS ABSOLUTE MAN 2.78 K/mm3 (1.96-9.15); SEG NEUTROPHILS PERCENT MAN 43 % (41-73)
[2025-10-26 09:16] LABS: Thyroid Stimulating Hormone 4.77 uIU/mL (0.360-4.800)
[2025-10-26 12:57] VITALS: BP 105/81
[2025-10-26] MEDS ORDERED: FURO40 PO (16:18)
[2025-10-26] MEDS ORDERED: MAGNESIUM OXID500 MG PO (16:20)
[2025-10-26 16:30] VITALS: BP 122/81
--- NOTE | 2025-10-26 16:35 | NUR ---
SHIFT SUMMARY/DISCHARGE NOTE: NO SIGNIFICANT EVENTS HAPPENED DURING THIS SHIFT. DENIES ANY CP, PRESSURE, TIGHTNESS OR SOB. VSS. MAP >65. PT DISCHARGED TO HOME VIA WHEELCHAIR. THIS RN WENT OVER WRITTEN AND VERBAL DC INSTRUCTIONS AND PT WAS INSTRUCTED TO COME BACK TO THIS FACILITY IF SYMPTOMS COME BACK. PT DENIES ANY QUESTIONS OR CONCERNS.
[2025-10-26 23:10] LABS: SERUM, C-PEPTIDE 1.5 ng/mL (0.5-3.3)
[2025-10-26 23:53] LABS: IGF 1 Z SCORE CALCULATION -1.5; IGF1 INSULN-LIKE GROWTH FACT 1 55.0 ng/mL (26-245)
[2025-10-27 14:12] LABS: INSULIN FREE 3 uIU/mL (3-25); TOTAL INSULIN 3 uIU/mL (3-25)
== END 2025-10-26 16:46 | disposition home or self-care (01) | DRG 683 ==
LOC: ER 23:57 → ERHOLD 10-23 05:25 → PCU 10-23 13:48
PROVIDERS: Emergency Medicine; Family Medicine; ADMIT Student in an Organized Health Care Education/Training Program
DX: N17.9 Acute kidney failure, unspecified (principal); E87.20 Acidosis, unspecified; I50.32 Chronic diastolic (congestive) heart failure; J96.11 Chronic respiratory failure with hypoxia; I13.0 Hypertensive heart and chronic kidney disease with heart failure and stage 1 through stage 4 chronic kidney disease, or unspecified chronic kidney disease; I27.20 Pulmonary hypertension, unspecified; N18.9 Chronic kidney disease, unspecified; E11.22 Type 2 diabetes mellitus with diabetic chronic kidney disease; J44.9 Chronic obstructive pulmonary disease, unspecified; E11.649 Type 2 diabetes mellitus with hypoglycemia without coma; I48.0 Paroxysmal atrial fibrillation; E78.5 Hyperlipidemia, unspecified; Z99.81 Dependence on supplemental oxygen; Z85.118 Personal history of other malignant neoplasm of bronchus and lung; Z86.73 Personal history of transient ischemic attack (TIA), and cerebral infarction without residual deficits; Z79.899 Other long term (current) drug therapy; Z79.51 Long term (current) use of inhaled steroids; Z79.01 Long term (current) use of anticoagulants; Z98.890 Other specified postprocedural states; Z87.891 Personal history of nicotine dependence
CPT/HCPCS: 36415; 70450; 70496; 70498; 71045; 71260; 76770; 80053; 82533; 82803; 82947; 83036; 83525; 83527; 83605; 83735; 83880; 84305; 84439; 84443; 84481; 84681; 85025; 85730; 93005; 93010; 94660; 94761; 94762; 96365-59; 96375-59; 99285-25; A9270; J0282; J1650; J1938; J3475; J7030; J7050; Q9967